=== PATIENT | female | born 1945 | race Caucasian/White ===

== ENCOUNTER 2019-03-27 09:30 | Day surgery (SDC) | payer OTHER, BC ==
[~2019-03-27] VITALS: Ht 167.6 cm; Wt 85.7 kg
[~2019-03-27 09:30] MED LIST: AMLODIPINE BESY10 MG PO; CALCIUM + D3 E1 EACH PO; CELEXA 20 MG TA20 MG PO; FLONASE 0.05%50 MCG NASAL; LOVASTAT40 PO; MULTIVITAMINS PO; PRINIVIL20 M1 PO
[2019-03-27 10:23] VITALS: BP 140/88
--- NOTE | 2019-03-31 06:17 | O ---
[facility] [place] [address] OPERATIVE REPORT Name: STEVEN DOOLEY Room #: DEP [facility].#: [id number] Admission: 03/27/19 Attend Phys: Seymour Van MD Discharge: 03/27/19 Date of : 45 Report #: [id number] THIS REPORT FOR: //name// CC: JAKY Mcintosh Dr. DATE OF SERVICE: 03/27/2019 SURGEON: Seymour Van MD PREOPERATIVE DIAGNOSIS: Right nasal lacrimal duct obstruction. POSTOPERATIVE DIAGNOSIS: Right nasal lacrimal duct obstruction. OPERATION PERFORMED: Right endoscopic balloon dacryocystoplasty with silicone intubation. ANESTHESIA: General. COMPLICATIONS: None. 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 The current procedures are undertaken in order to improve the patient's level of lacrimal outflow and visual clarity. Informed consent was obtained to include but not limited to the potential risks for damage to the eye, loss of vision, bleeding, infection, failure to improve the problem and need for further surgery. DESCRIPTION OF OPERATION: The patient was taken to the operating room, where general anesthesia was administered. The medial canthi were anesthetized with 2% Xylocaine with epinephrine mixed with equal parts of 0.75% Marcaine with Wydase. The lateral wall of the nose was then injected with the same anesthetic mixture. The nose was packed with Afrin-soaked cottonoids. The patient was then prepped and draped in the usual sterile fashion. The superior and inferior puncta were then atraumatically dilated with a punctum dilator. A size 0 lacrimal probe was then passed through the superior canalicular system and through the stenosed nasal lacrimal duct. The nasal packing was removed and the endoscope was brought into the field. The inferior turbinate was gently infractured with a [place] periosteal elevator to allow visualization of the inferior meatus in the area of the opening of the valve of Hasner in the nose. The probe was found and confirmed to be in the proper [address] [address] OPERATIVE REPORT Name: STEVEN DOOLEY Room #: DEP [facility] M.Eric.#: [id number] Admission: 03/27/19 Attend Phys: Seymour Van MD Discharge: 03/27/19 Date of : 45 Report #: [id number] location. It was removed and subsequently replaced with a size 1 and a size 2 Can probe, which also had their passage confirmed endoscopically to be in the proper location. A 3 by 15 LacriCatheter was lubricated with a small quantity of ophthalmic antibiotic ointment. The LacriCatheter was then passed through the superior canalicular system and the stenosed nasal lacrimal duct. The LacriCatheter was confirmed to be in the proper location endoscopically intranasally in the inferior meatus. The LacriCatheter was inflated to 9 atmospheres for 90 seconds and deflated. The catheter was then inflated to 9 atmospheres for 60 seconds. The catheter was then withdrawn to the proximal black ring. It was then inflated to 9 atmospheres for 90 seconds. The balloon was then deflated and reinflated to 9 atmospheres for 60 seconds. The balloon was the aspirated and withdrawn to the distal black ring. It was then inflated to 9 atmospheres for 90 seconds. The balloon was deflated and reinflated to 9 atmospheres for 60 seconds. The balloon was then deflated and vigorously aspirated as it was withdrawn through the superior canalicular system. A Moon tube was then passed through the superior canalicular system and out the dilated duct. The Moon tube was secured under the inferior turbinate in the inferior meatus with a Moon hook and retrieved endoscopically. The Moon tube was then passed through the inferior canalicular system in a similar fashion and was retrieved endoscopically in the nose atraumatically. The Moon tube was then secured to itself with 3 square throws and then to the lateral wall of the nose with a 5-0 Prolene suture. Antibiotic steroid drops were then placed in both eyes. A small quantity of ophthalmic antibiotic ointment was placed on the Moon tube. The patient was then transported to the recovery area with no anesthetic or operative complications being noted. ADDENDUM Her surgery was a right-sided endoscopic balloon dacryocystoplasty with silicone intubation, which is a FROG, it is a unilateral surgery for the right side. <ELECTRONICALLY SIGNED> By: Seymour Van MD 03/31/19 [id number] Seymour Van MD /nt
== END 2019-03-27 12:15 | disposition home or self-care (01) ==
LOC: OR 09:30 → TBA 09:30 → OR 11:13
DX: H04.551 Acquired stenosis of right nasolacrimal duct (principal); I10 Essential (primary) hypertension; E78.00 Pure hypercholesterolemia, unspecified; F41.9 Anxiety disorder, unspecified; Z87.891 Personal history of nicotine dependence; Z98.890 Other specified postprocedural states; Z79.899 Other long term (current) drug therapy
CPT/HCPCS: 50010; 50101; 50386; 50398; 51777; 55343; 56528; 62110; 62900; 64037; 70005